=== PATIENT | male | born 1995 | race Caucasian/White ===

== ENCOUNTER 2019-07-09 12:54 | Emergency (ER) | payer OTHER ==
[~2019-07-09] VITALS: Ht 172.7 cm; Wt 68.0 kg
--- NOTE | 2019-07-09 13:24 | NUR ---
bibfather, c/o "feels sting in my penis", wan't to be check for STD, states his GF have symptoms. NO OTHER MEDICAL COMPLAINTS AT THIS TIME. NO ACUTE DISTRESS NOTED. READY FOR EVAL.
[2019-07-09] MEDS ORDERED: CEFTRIAXONE 1 G VIAL IM ONE (13:30)
[2019-07-09] MEDS ORDERED: AZITHROMYCIN 250 MG TABLET PO ONE (13:30)
[2019-07-09] MEDS ORDERED: AZITHROMYCIN 250 MG TABLET ONE (13:43)
[2019-07-09] MEDS ORDERED: CEFTRIAXONE 500 MG VIAL ONE (13:43)
[2019-07-09] MEDS ORDERED: LIDOCAINE 1% INJ 50 ML MDV IJ ONE (13:44)
--- NOTE | 2019-07-09 13:55 | NUR ---
Patient discharged to home in stable condition. Written and verbal after care instructions given. Patient verbalizes understanding of instruction.
[2019-07-09 14:06] VITALS: BP 127/80
== END 2019-07-09 13:55 | disposition home or self-care (01) ==
LOC: ER 12:57
DX: A64 Unspecified sexually transmitted disease (principal)
CPT/HCPCS: 87491; 87591; 96372; 99283; J0696; J3490